=== PATIENT | female | born 1985 | race Hispanic/Latino ===

== ENCOUNTER 2017-11-09 19:03 | Emergency (ER) | payer SELFPAY ==
[2017-11-09 19:37] VITALS: BP 134/67
--- NOTE | 2017-11-09 22:17 | Emergency Department Report ---
Abscess Boil HPI - HPI Chief Complaint: Skin/Abscess/Foreign Body Stated Complaint: LFT ARM SORE UNDERARM Time Seen by Provider: 11/09/17 21:18 Duration: >1 Week (2 weeks) Location: Upper Extremity (left axilla) Severity: Moderate History: Yes Pain, Yes Purulent Drainage, Yes Previous History, No Fever, No Numbness, No Foreign Body, No Insect Bite HPI: This is a 32-year-old female who presents with an abscess to the left arm. For 2 weeks. Patient states she has passed history abscess in similar area. She is apply warm compresses which improves well and an cause abscess to drain. Patient states they went flat last Tuesday which she assumed soft problem. When she woke up yesterday morning and abscess reappear with slight swelling, purulent discharge, pain with range of motion. Patient describes pain as a throbbing pressure that is constant. Pain currently is 8 out of 10 on pain scale. Patient denies fever, numbness or tingling, or insect bite. Home Medications: Previous Rx's Medication Instructions Recorded Last Taken Type Acetaminophen/Codeine [Tylenol 1 tab PO Q6H PRN #12 tab 11/09/17 Unknown Rx /Codeine # 3 tab] Sulfamethoxazole/Trimethoprim 1 each PO BID #20 tablet 11/09/17 Unknown Rx [Bactrim DS TAB] Allergies/Adverse Reactions: Allergies Allergy/AdvReac Type Severity Reaction Status Date / Time Penicillins Allergy Unknown Verified 11/09/17 19:37 ED Review of Systems ROS: Stated complaint: LFT ARM SORE UNDERARM Other details as noted in HPI Constitutional: denies: chills, fever Respiratory: denies: cough, shortness of breath, wheezing Cardiovascular: denies: chest pain, palpitations Gastrointestinal: denies: abdominal pain, nausea, diarrhea Skin: lesions (abscess to the left axilla). denies: rash Neurological: denies: headache, weakness, paresthesias Psychiatric: denies: anxiety, depression ED Past Medical Hx - Past Medical History Previous Medical History?: No - Surgical History Past Surgical History?: No - Social History Smoking Status: Never Smoker - Medications Home Medications: Home Medications Medication Instructions Recorded Confirmed Last Taken Type Acetaminophen/Codeine [Tylenol 1 tab PO Q6H PRN #12 tab 11/09/17 Unknown Rx /Codeine # 3 tab] Sulfamethoxazole/Trimethoprim 1 each PO BID #20 tablet 11/09/17 Unknown Rx [Bactrim DS TAB] ED Abscess Boil Physical Exam - Exam General: Vital signs noted. No distress. Alert and acting appropriately. Front/Back of Body, Lg (Color): 1 - 1 cm erythematous, nonfluctuant nodule to left axilla, tenderness, purulent drainage, surrounding cellulitis Size: 1 cm Exam: Yes Tenderness, Yes Fluctuance, Yes Surrounding Cellulites/Erythema, Yes Normal Neurologic Exam, Yes Normal Circulation, No Lymphangitis, No Crepitation , No Heart Murmur ED Course Vital Signs 11/09/17 19:34 Temperature 98.3 F Pulse Rate 74 Respiratory 16 Rate Blood Pressure 134/67 O2 Sat by Pulse 100 Oximetry Critical care attestation.: If time is entered above; I have spent that time in minutes in the direct care of this critically ill patient, excluding procedure time. ED Medical Decision Making - Medical Decision Making This is a 32 y.o. female that presents with a painful abscess to left axilla for 2 week. Past history of prior abscess. Patient is stable and examined by me. No acute signs of distress noted. Given toradol 30 mg IM once in ER. Abscess is non-fluctuate and actively draining. Discussed plan to start bactrim DS and tylenol #3 with patient. Wound reassessed in 2-3 days. Patient agrees to ED plan of care. Discharged home and follow up with PCP in 2-3 days. ED Disposition Clinical Impression: Abscess of axilla, left, Cellulitis of axilla, left Disposition: DC- TO HOME OR SELFCARE Is pt being admited?: No Does the pt Need Aspirin: No Condition: Stable Instructions: Abscess (ED) Additional Instructions: Complete full round of bactrim DS antibiotic as prescribed. Have reassessed in 2-5 days by primary care provider. Follow up with primary care provider or ER in 2-5 days. Return to ER if foul smelling discharge, swelling, or severe pain to wound. Prescriptions: Acetaminophen/Codeine [Tylenol /Codeine # 3 tab] 1 tab PO Q6H PRN #12 tab PRN Reason: Pain , Severe (7-10) Sulfamethoxazole/Trimethoprim [Bactrim DS TAB] 1 each PO BID #20 tablet Referrals: [facility] [Outside] - 3-5 Days [facility] [Outside] - 3-5 Days [facility] [Outside] - 3-5 Days Forms: Work/School Release Form(ED) Time of Disposition: 22:23 Print Language: PASHTO
[2017-11-09] MEDS ORDERED: TORADOL IM ONE (22:19)
== END 2017-11-09 22:45 | disposition home or self-care (01) ==
LOC: ED 19:03
DX: L02.412 Cutaneous abscess of left axilla (principal); L03.112 Cellulitis of left axilla; Z88.0 Allergy status to penicillin
CPT/HCPCS: 96372; 99282; J1885